=== PATIENT | female | born 1975 | race Caucasian/White ===

== ENCOUNTER 2016-12-25 17:59 | Emergency (ER) | payer OTHER | END 2016-12-25 20:50 | disposition home or self-care (01) | LOC: ER1 17:59 | DX: J10.1 Influenza due to other identified influenza virus with other respiratory manifestations (principal) | CPT/HCPCS: 96372; 99283; J1100 ==

== ENCOUNTER → 2021-02-25 | Outpatient (CLI) | payer OTHER ==
[2021-02-27 12:14] LABS: HBSAG SCREEN Negative (Negative); HEP B CORE AB, IGM Negative (Negative); HEP B CORE AB, TOT Negative (Negative); HEP BE AB Negative (Negative); HEP BE AG Negative (Negative)
[2021-02-28 19:09] LABS: QUANTIFERON MITOGEN VALUE >10.00 IU/mL (.); QUANTIFERON TB1 AG VALUE 0.09 IU/mL (.); QUANTIFERON TB2 AG VALUE 0.05 IU/mL (.); QUANTIFERON-TB GOLD PLUS Negative (Negative)
== END ==
LOC: LAB 17:05
PROVIDERS: Nurse Practitioner Family
DX: Z02.1 Encounter for pre-employment examination (principal)
CPT/HCPCS: 86704; 86705; 86706; 86707; 87340; 87350

== ENCOUNTER 2021-06-11 08:36 | Emergency (ER) | payer BC ==
[~2021-06-11] VITALS: Ht 162.6 cm; Wt 90.7 kg
== END 2021-06-11 13:50 | disposition home or self-care (01) ==
LOC: ER1 08:36
DX: Z23 Encounter for immunization (principal); U07.1 COVID-19; F17.200 Nicotine dependence, unspecified, uncomplicated; Z90.49 Acquired absence of other specified parts of digestive tract
CPT/HCPCS: 87081; 87880; 99284; M0243; U0002